=== PATIENT | male | born 1970 | race Two or more races ===

== ENCOUNTER 2023-10-16 10:18 | Emergency (ER) | payer OTHER, SELFPAY ==
[2023-10-16 10:41] VITALS: BP 128/80; PULSE 101; RESP 18; TEMP 37; O2SAT 98
--- NOTE | 2023-10-16 11:05 | PC.NURSE ---
ED provider bedside assessing pt. abscess/boil/blister to underneath right side of big toe. pt verbalizes fever/chills. 10/10 pain upon touch. hx DM2.
--- NOTE | 2023-10-16 11:07 | ED_ITS ---
HPI - Skin/Abscess/Foreign Bdy General Chief complaint: Skin/Abscess/Foreign Body Stated complaint: r foot has bubble Time Seen by Provider: 10/16/23 10:50 Source: patient, RN notes reviewed and old records reviewed Mode of arrival: ambulatory History of Present Illness HPI narrative: 52-year-old female with a past medical history of diabetes presenting to the ED complaining of painful blister/wound to right great toe x yesterday with subjective fever and chills. Denies drainage from area, injury, numbness/tingling, weakness Related Data Previous Rx's Medication Instructions Recorded cephalexin 500 mg capsule 500 mg PO QID 7 days #28 caps 10/16/23 Allergies Allergy/AdvReac Type Severity Reaction Status Date / Time Penicillins [PENICILLINS] Allergy Unknown UNK Unverified 07/06/20 15:57 Review of Systems 2 Review of Systems: Constitutional: No Fever, No Chills ENT/Mouth: No Ear Pain, No Nasal Congestion, No sore throat, No Rhinorrhea, No Swallowing Difficulty Cardiovascular: No Chest Pain, No SOB Respiratory: No Cough, No Sputum, No Wheezing Musculoskeletal: No joint pain, No Myalgias, No Joint Swelling Skin: +Skin Lesions, No rash Neuro: No Weakness, No Numbness, No Paresthesias Yes all other systems are reviewed and are negative Constitutional: Constitutional: Reports as per [facility] Past Medical History Attestation statement: The following information was validated with the patient. Source: old records reviewed Social History Social History Alcohol intake: current Alcohol intake frequency: holidays/special occasions only Smoked in Last 30 Days: Yes Use of substances other than those prescribed or required for medical reasons: Yes Substance Use Type: Marijuana Advance Directives: No Physical Exam 2 Vital Signs: Vital Signs: Last Vital Signs Temp 98.6 F 10/16/23 10:41 Pulse 101 H 10/16/23 10:41 Resp 18 10/16/23 10:41 BP 128/80 10/16/23 10:41 Pulse Ox 98 10/16/23 10:41 O2 Del Method Room Air 10/16/23 10:41 BMI result Body Mass Index 30.0 Const: General: cooperative, healthy appearing and no acute distress O rientation/consciousness: patient oriented x3 Limitations: no limitations HEENT: Head: Yes normal to inspection and Yes atraumatic Ears: hearing grossly normal bilaterally General nose exam: Normal external nose present Face and sinus: Yes normal facial exam Eyes: General: appearance normal, both eyes and all related structures EOM: EOMs intact bilaterally Neck: Neck: Yes normal visual inspection and Yes no meningeal signs Resp: Effort & Inspection: normal respiratory effort and no respiratory distress Cardio: Rate: regular rate Skin: Other: Please refer to image above, small fluid-filled blister to plantar aspect of right great toe. Small amount of clear fluid expressed. No fluctuance or induration. Slight erythema surrounding. Tender to palpation. No crepitus Rashes: no rashes Neuro: General: patient oriented x3, tone normal and no meningeal signs C ranial nerves: Yes CN's II-XII intact bilaterally Gait exam (Neuro): Normal gait present Extrem: General: Yes normal to inspection Medical Decision Making Medical Decision Making MDM Narrative: 52-year-old female with a past medical history of diabetes presenting to the ED complaining of painful blister/wound to right great toe x yesterday with subjective fever and chills. On exam mildly tachycardic, NAD, nontoxic appearing, please refer to image. Blister noted to right great toe with slight surrounding erythema. No fluctuance or induration. Low suspicion for osteomyelitis or underlying abscess. Small amount of clear drainage expressed Discussed with patient local wound care, p.o. antibiotics and close PCP follow- up/monitoring Please refer to course for remaining clinical decision making, interpretation of labs/imaging results, and discussions with consultants and/or family members. Results discussed with patient including worrisome signs and symptoms and strict return precautions, and when to return to the emergency department. They verbalized understanding and feel safe for discharge at this time. Differential Diagnosis Differential Diagnoses: The differential diagnosis associated with the presentation includes As above External Record Review External record reviewed: Inpatient record, Office record, Outpatient record, Prior outpatient labs, Prior outpatient radiology, Primary care record and Outside ED record Tests considered The following testing was considered but not selected: As above Prescription Management I considered prescription management with: Pain Medication and Antibiotic Chronic Conditions Patient?s care impacted by: Diabetes Discharge Plan Discharge Clinical Impression: Blister, Cellulitis Patient Disposition: Home, Self-Care Instructions: Cellulitis (DC) Additional Instructions: Apply warm compresses Keflex as an antibiotic please take as prescribed If area worsens, spreads, becomes more red, has pus drainage or you fever return to the ED. Take Tylenol /Motrin for pain Wear loose shoes Prescriptions: New cephalexin 500 mg capsule 500 mg PO QID 7 Days Qty: 28 0RF Referrals: Physician,Unknown J [Primary Care Provider] - Interventions: ED Discharge Assessment Last Done: 10/16/23 11:28 Discharge Date/Time: 10/16/23 11:28
== END 2023-10-16 11:28 | disposition home or self-care (01) ==
PROVIDERS: Emergency Provider Emergency Medicine
DX: S90.821A Blister (nonthermal), right foot, initial encounter (principal); L03.031 Cellulitis of right toe; R50.9 Fever, unspecified; R00.0 Tachycardia, unspecified; X58.XXXA Exposure to other specified factors, initial encounter; Y93.9 Activity, unspecified; Y92.9 Unspecified place or not applicable; Y99.9 Unspecified external cause status
CPT/HCPCS: 99283; 99284

== ENCOUNTER 2024-04-30 17:12 | Emergency (ER) | payer OTHER, SELFPAY ==
--- NOTE | ~2024-04-30 | XR_ITS ---
EXAMINATION: XR FOOT, RIGHT CLINICAL INFORMATION: Third digit injury. Pain. COMPARISON: None available. TECHNIQUE: AP, lateral, and oblique views of the right foot. FINDINGS: There is no fracture or dislocation. Metatarsophalangeal joints are maintained. Interphalangeal joints are maintained. There is no radiopaque foreign structure within the soft tissue. XR/XR foot RT min 3V IMPRESSION: No fracture or dislocation.
[2024-04-30 17:32] VITALS: BP 160/76; PULSE 97; RESP 20; TEMP 36.4; O2SAT 98; BMI 29.4
--- NOTE | 2024-04-30 17:32 | ED_ITS ---
HPI - General Adult General Chief complaint: Extremity Injury, Lower Stated complaint: injured toe, diabetic, in pain Time Seen by Provider: 04/30/24 19:19 Source: patient Limitations: no limitations History of Present Illness HPI narrative: 53-year-old patient presents for evaluation of pain and swelling to the 3rd toe on the right foot. Patient reports that the toe was struck on the adjuvant deck several days ago. There was mild discomfort to this area however today it began to be more swollen with some redness. Patient has a history of diabetes and was therefore concerned and brought to the emergency department. Patient denies any repeat injury. No fevers chills nausea vomiting. No paresthesias. No other wounds noted. Glucose has been fairly well controlled. Related Data Previous Rx's ?Medication ?Instructions ?Recorded cephalexin 500 mg capsule 500 mg PO QID 7 days #28 caps 10/16/23 mupirocin 2 % topical ointment 1 appl topical BID #15 grams 04/30/24 sulfamethoxazole 800 1 tab PO BID 10 days #20 tabs 04/30/24 mg-trimethoprim 160 mg tablet (Bactrim DS) Allergies Allergy/AdvReac Type Severity Reaction Status Date / Time Penicillins [PENICILLINS] Allergy Unknown UNK Verified 04/30/24 17:34 Review of Systems Constitutional: Constitutional: Denies chills and Denies fever(s) Musculoskeletal: Musculoskeletal: Denies back pain, Denies muscle weakness and Denies numbness Comments: Pain and redness to the right 3rd toe Integumentary/Breasts: Skin/Breast: Denies rash Neurologic: Denies focal weakness and Denies numbness [facility] Past Medical History Attestation statement: The following information was validated with the patient. [facility] Narrative: Diabetes Social History Social History Alcohol intake: current Alcohol intake frequency: holidays/special occasions only Substance Use Type: Marijuana Advance Directives: No Advance Directives Information Provided: No Do you have a plan to hurt others: No Plan Physical Exam ED Vital Signs: Vital Signs - 24 hr 04/30/24 17:32 Temperature 97.5 F Pulse Rate 97 Respiratory Rate 20 Blood Pressure 160/76 H Pulse Oximetry 98 Oxygen Delivery Method Room Air BMI result Body Mass Index 29.4 Const General: cooperative Extrem Other: On the right 3rd toe has slight swelling with mild erythema at the base of the toe on the dorsal aspect. There is a slight irritation to the skin of the webbing of the toes between the 3rd and 4th toes. There is no fluctuance or discharge. No streaking. Capillary refills less than 2 seconds. Full range of motion of all toes, no 5th metatarsal tenderness. DP pulses are +1 and equal bilaterally. Course Course Course Narrative: This is an RME performed by Ced Benito CNP: Additional HPI, ROS, PE not included below will be deferred to primary provider. Patient is a 53-year-old diabetic who presents to the emergency department Reporting pain to the right 3rd toe, accidentally banged it yesterday while walking outside on the deck. Awoke today with pain Plan: XR to exclude fracture Medical Decision Making Medical Decision Making MDM Narrative: 53-year-old patient with a history of diabetes presents with pain and swelling to the right 3rd toe secondary to injury. No fracture on x-ray. Due to the edema and slight erythema and the history of diabetes, patient will be placed on antibiotics. First dose of Bactrim given now. There is no evidence of drainable abscess. Consideration for labs, but given that the patient is afebrile, hemodynamically stable and only localized to the toe, we will defer at this time. No evidence of osteomyelitis. I have had a discussion with the patient regarding close monitoring for any worsening of symptoms. The patient feels comfortable with discharge plan home. No further questions at this time Differential Diagnosis Differential Diagnoses: The differential diagnosis associated with the presentation includes Fracture Cellulitis Contusion Sprain Abscess Admission/Observation Consideration of admission/observation: Escalation of care including admission/observation considered Consideration for inpatient admission if clinically warranted. Lab Data Rash noted no Radiology Impression Discussion of test interpretation with radiology: I have reviewed the radiologist's reading. Radiologist Impression: [address] [address] XRay Report Signed Patient: Killian Navarrete MR#: [id number] : 1970 Acct:[id number] Age/Sex: 53 / M ADM Date: 04/30/24 Loc: HO.ED Attending Dr: Ordering Physician: Lizette Benito CNP Date of Service: 04/30/24 Procedure(s): XR foot RT min 3V Accession Number(s): [id number] cc: Lizette Benito CNP; Physician,Unknown ~ EXAMINATION: XR FOOT, RIGHT CLINICAL INFORMATION: Third digit injury. Pain. COMPARISON: None available. TECHNIQUE: AP, lateral, and oblique views of the right foot. FINDINGS: There is no fracture or dislocation. Metatarsophalangeal joints are maintained. Interphalangeal joints are maintained. There is no radiopaque foreign structure within the soft tissue. XR/XR foot RT min 3V IMPRESSION: No fracture or dislocation. Dictated By: Maicol Ferreira Jr, DO Signed By: <Electronically signed by Maicol Ferreira Jr, DO in OV> 04/30/24 1900 DD/ 47 TD/TT: Decision Unit Rn: PETER Prescription Management I considered prescription management with: Antibiotic Chronic Conditions Patient?s care impacted by: Diabetes Discharge Plan Discharge Clinical Impression: Contusion of toe of right foot, Cellulitis of toe Patient Disposition: Home, Self-Care Instructions: Cellulitis (ED) Additional Instructions: Bactroban ointment to the affected area between the toes of your right foot. Bactrim as directed. Finish all antibiotics. Watch for redness, streaking, swelling, severe pain or any other concern return immediately to the emergency department. Watch for any swelling or bubbles of pus which may need to be opened and drained. Follow-up with your primary care provider. Call this week to schedule a follow- up appointment. Return to the emergency department if you have any worsening of symptoms, or any concerns. Get well soon! Prescriptions: New mupirocin 2 % ointment 1 appl topical BID Qty: 15 0RF sulfamethoxazole-trimethoprim [Bactrim DS] 800-160 mg tablet 1 tab PO BID 10 Days Qty: 20 0RF No Action cephalexin 500 mg capsule 500 mg PO QID 7 Days Qty: 28 0RF Print Language: Telugu
[2024-04-30 20:15] VITALS: BP 160/76; PULSE 97; RESP 20; TEMP 36.4; O2SAT 98
== END 2024-04-30 20:15 | disposition home or self-care (01) ==
PROVIDERS: Emergency Provider Emergency Medicine Emergency Medical Services
DX: S90.121A Contusion of right lesser toe(s) without damage to nail, initial encounter (principal); W22.09XA Striking against other stationary object, initial encounter; L03.031 Cellulitis of right toe; E11.9 Type 2 diabetes mellitus without complications; Y93.89 Activity, other specified; Y92.008 Other place in unspecified non-institutional (private) residence as the place of occurrence of the external cause; Y99.9 Unspecified external cause status
CPT/HCPCS: 73630; 99282; 99283

== ENCOUNTER → 2024-12-09 09:22 | Outpatient (BNV) | payer OTHER, SELFPAY | PROVIDERS: Visit Provider Radiology Neuroradiology | DX: R05.9 Cough, unspecified (principal); J98.11 Atelectasis | CPT/HCPCS: 71046 ==

== ENCOUNTER 2024-12-09 20:37 | Emergency (ER) | payer OTHER, SELFPAY ==
--- NOTE | ~2024-12-09 | XR_ITS ---
CLINICAL HISTORY: cough 2 view chest x-ray Comparison: None Findings: Mild right basilar atelectasis/pneumonitis. No lobar consolidation. No pneumothorax or pleural effusion. Mild emphysematous changes. Cardiac silhouette and mediastinal contours are within normal limits. No acute fracture. IMPRESSION: Mild right basilar atelectasis/pneumonitis without consolidation. This document has been electronically signed by: David Junior MD on 12/09/2024 21:47:29
--- NOTE | 2024-12-09 20:38 | ECG_ITS ---
Test Reason : CHEST PAIN Blood Pressure : */* mmHG Vent. Rate : 108 BPM Atrial Rate : 108 BPM P-R Int : 150 ms QRS Dur : 78 ms QT Int : 334 ms P-R-T Axes : 65 47 56 degrees QTcB Int : 447 ms Sinus tachycardia Otherwise normal ECG No previous ECGs available Referred By: Mikaela Marley Electronically Signed By: THUY HAYDEN
[2024-12-09 21:01] VITALS: BP 128/68; PULSE 111; RESP 20; TEMP 37.4; O2SAT 99; BMI 29.5
[2024-12-09 22:02] LABS: Influenza A PCR POSITIVE (Negative); Influenza B PCR NEGATIVE (Negative); Resp Syncy Virus RNA Qual PCR NEGATIVE (Negative); SARS COV2 PCR INHOUSE NEGATIVE (Negative)
[2024-12-10 01:59] VITALS: BP 125/67; PULSE 113; RESP 20; TEMP 38.3; O2SAT 98
[2024-12-10] MEDS: Ibuprofen 600 MG TABLET PO (02:03)
--- OUTSIDE RECORDS SUMMARY | 2024-12-10 02:21 | XMS_ITS | Clinical Summary ---
Author Organization [facility] Address [address] [place] [address] Care Team Providers Care Kiss Machine Operator Name Role Phone Cammy Goins Primary Care Provider [phone] Allergies Active Allergy Reactions Criticality Noted Date Comments Atorvastatin Rash 11/07/2022 Penicillin Edema 11/07/2022 reaction was in childhood so history unclear, required hospitalization Medications Ventolin HFA 90 mcg/actuation inhaler INHALE 1 PUFF 4 TIMES A DAY NEEDED FOR WHEEZE 2 Active aspirin 81 mg EC tablet Take 81 mg by mouth once a day. 2 Active Freestyle Lite test strips TO CHECK BLOOD SUGAR 3 TIMES A DAY. DX: DM LL E11.9, ON INSULIN 2 Active cholecalciferol (VITAMIN D3) 2,000 unit capsule Take 2,000 Int'l Units by mouth. 2 Active diclofenac (VOLTAREN) 1% gel Apply 1 application. topically to the affected area. 2 Active dulaglutide (Trulicity) 0.75 mg/0.5 mL injection dose See Instructions, INJECT 0.5 ML SUBCUTANEOUS INJECTION EVERY WEEK,INSTR:ANDERSON Loo INJECTION SITES, # 2 Unknown, 11 Refills, Maintenance, 08/29/22 6:04:00 EST, [id number], 172.7, cm, 08/27/22 10:27:00 EST, Height 2 Active estradiol valerate (DELESTROGEN) 20 mg/mL injection Inject 8 mg into the shoulder, thigh, or buttocks muscle as directed. 2 07/30/20 25 Active Freestyle lancets 28 gauge USE DIRECTED TO MONITOR BLOOD SUGAR THREE TIMES A DAY. DIAGNOSIS CODE E11.9 2 Active lisinopriL (PRINIVIL,ZESTR IL) 5 mg tablet Take 5 mg by mouth. 2 Active metFORMIN ER (GLUCOPHAGE XR) 500 mg tablet Take 1,000 mg by mouth 2 times a day. 2 Active BD Regular Bevel [place] 22 gauge x 1 needle FOR USE WITH ESTROGEN, INJECT WEEKLY 2 Active BD SafetyGlide Needle 18 gauge x 1 1/2 needle 2 Active progesterone (PROMETRIUM) 200 mg capsule Take 200 mg by mouth. 2 Active spironolactone (ALDACTONE) 100 mg tablet Take 100 mg by mouth. 2 Active triamcinolone acetonide (KENALOG) 0.025% cream Apply 1 application. topically to the affected area. 2 Active Active Problems No known active problems Social History Tobacco Use Types Packs/Day Years Used Date Smoking Tobacco: Every Day Cigarettes Tobacco Cessation:Ready to Q uit: Not Asked; Counseling Given: Not Answered Alcohol Use Standard Drinks/Week Comments Yes 0 (1 standard drink = 0.6 oz pur e alcohol) does drink daily Sex and Gender Information Value Date Recorded Sex Assigned at Male 11/06/2022 6:33 PM EST Legal Sex Male 3:03 PM EST Gender Identity Female 08/29/2022 3:13 PM EST Sexual Orientation Lesbian or [place] 11/06/2022 6: 33 PM EST Last Filed Vital Signs Vital Sign Reading Time Taken Comments Blood Pressure - - Pulse - - Temperature - - Respiratory Rate - - Oxygen Saturation - - Inhaled Oxygen Concentration - - Weight 90.7 kg (200 lb) 11/07/2022 11:31 AM EST Height 172.7 cm (5' 8 ) 11/07/2022 11:31 AM EST Body Mass Index 30.41 11/07/2022 11:31 AM EST Plan of Treatment Health Maintenance Due Date Last Done Comments Cologuard 1970 Colon Cancer Screening 1970 Colonoscopy 1970 FOBT / Fit Test 1970 HIV Screening 1970 Hepatitis C Screening 1970 Sigmoidoscopy 1970 Hepatitis B Vaccines (1 of 3 - 19+ 3-dose series) 1987 Pneumococcal Vaccine: 50+ Ye ars (2 of 2 - PCV) 01/27/2014 01/27/2013 Pneumococcal Vaccine: Pediat lexie (0-5 Years) and At-Risk Patients (6-50 Years) (2 of 2 - PCV) 01/27/2014 01/27/2013 CT Lung Cancer Screening (Baseline) 2018 Zoster Vaccines (2 of 2) 12/02/2021 10/07/2021 COVID-19 Vaccine (5 - 2023-2 5 season) 2024 08/27/2022, 10/07/2021, 03/15/2021, Additional history exists Influenza Vaccine (#1) 2024 Alcohol/Substance Use Screening 10/20/2024 Depression Screening and Follow-Up 10/20/2024 Social Drivers of Health Chrissy ual Screening 10/20/2024 DTaP,Tdap,and Td Vaccines (4 - Td or Tdap) 08/05/2032 08/05/2022, 08/05/2022, 11/01/2010 RSV Vaccine (60+ years old a nd patients) (1 - 1-dose 75+ series) 2043 Insurance [facility] Care Teams Kiss Machine Operator Relationship Specialty Start Date End Date Cammy Goins [address] [place] [address] [phone] PCP - General Internal Medicine 08/29/22
--- OUTSIDE RECORDS SUMMARY | 2024-12-10 02:21 | XMS_ITS | Clinical Summary ---
Author Organization [facility] Address [address] [place] [address] Care Team Providers Care Residential Program Coordinator Name Role Phone Unavailable Primary Care Provider Unavailabl e Social History Tobacco Use Types Packs/Day Years Used Date Smoking Tobacco: Never Assessed Sex and Gender Information Value Date Recorded Sex Assigned at Not on file Legal Sex Male 3:31 PM EST Gender Identity Not on file Sexual Orientation Not on file Plan of Treatment Health Maintenance Due Date Last Done Comments DTaP,Tdap,and Td Vaccines (1 - Tdap) 1987 Hepatitis B Vaccines (1 of 3 - 19+ 3-dose series) 1987 Pneumococcal Vaccine: 50+ Ye ars (1 of 1 - PCV) 2018 Zoster Vaccines (1 of 2) 2018 Cholesterol Screening (Lipid Panel) 09/18/2022 Colorectal Cancer Screening: Colonoscopy 09/18/2022 Depression Screening 09/18/2022 HIV Screening 09/18/2022 Hepatitis C Screening 09/18/2022 Social Influencers of Health Screening 09/18/2022 COVID-19 Vaccine ( - 2023-2 5 season) 2024 Influenza Vaccine (#1) 2024 HIB Vaccines Aged Out No longer eligi ble based on patient's age to complete this topic HPV Vaccines Aged Out No longer eligi ble based on patient's age to complete this topic Hepatitis A Vaccines Aged Out No long er eligible based on patient's age to complete this topic IPV Vaccines Aged Out No longer eligi ble based on patient's age to complete this topic MMR Vaccines Aged Out No longer eligi ble based on patient's age to complete this topic Meningococcal ACWY Vaccine Aged Out N o longer eligible based on patient's age to complete this topic Meningococcal B Vacine Aged Out No lo nger eligible based on patient's age to complete this topic Pneumococcal Vaccine: Pediat rics (0 to 5 Years) and At-Risk Patients (6 to 64 Years) Aged Out No longer eligible b ased on patient's age to complete this topic RSV Immunization Patients Un caleb 20 months Aged Out No longer eligible b ased on patient's age to complete this topic Varicella Vaccines Aged Out No longer eligible based on patient's age to complete this topic
--- OUTSIDE RECORDS SUMMARY | 2024-12-10 02:21 | XMS_ITS | Referral Summary ---
Author Organization [facility] Address [address] [place] [address] Care Team Providers Care Monomer Recovery Operator Name Role Phone Cammy Goins Primary Care Provider [phone] Allergies Active Allergy Reactions Criticality Noted Date [...] Unknown, 11 Refills, Maintenance, 08/29/22 6:04:00 EST, [facility] [id number], 172.7, cm, 08/27/22 10:27:00 EST, Height 2 [...] a day. 2 Active BD Regular Bevel [place] 22 gauge x 1 needle FOR USE [...] 11/07/2022 11:31 AM EST Plan of Treatment Not on file Insurance [employer] [place] [id number] Care Teams Monomer Recovery Operator Relationship Specialty Start Date End Date Cammy Goins [address] [place] [address] PCP - General Internal Medicine 08/29/22
== END 2024-12-10 03:42 | disposition left against medical advice (07) ==
PROVIDERS: Emergency Provider Emergency Medicine Emergency Medical Services; PCP Internal Medicine
DX: R07.89 Other chest pain (principal); M54.50 Low back pain, unspecified; Z03.818 Encounter for observation for suspected exposure to other biological agents ruled out
CPT/HCPCS: 0241U; 71046; 93005; 99281; 99283

== ENCOUNTER → 2024-12-09 20:38 | Outpatient (BNV) | payer OTHER, SELFPAY | PROVIDERS: Emergency Provider Emergency Medicine Emergency Medical Services; PCP Internal Medicine; Visit Provider Internal Medicine | DX: R07.9 Chest pain, unspecified (principal); R00.0 Tachycardia, unspecified | CPT/HCPCS: 93010 ==